=== PATIENT | male | born 1935 | race Caucasian/White ===

== ENCOUNTER 2021-02-17 22:25 | Inpatient (IN) | payer MEDICARE, OTHER ==
[~2021-02-17] VITALS: Ht 177.8 cm; Wt 63.6 kg
[2021-02-17 23:49] LABS: Basophils # (auto) 0 10 ^3/uL (0-0.2); Basophils % (auto) 0.2 % (0.0-2.0); Eosinophils # (auto) 0 10 ^3/uL (0-0.8); Hematocrit 41.5 % (41.0-53.0); Hemoglobin 13.9 g/dL (13.5-17.5); Lymphocytes # (auto) 0.5 10 ^3/uL (0.4-5.4); Lymphocytes % (auto) 8.5 % (10.0-50.0); Mean Corpuscular Hemoglobin 32.8 pg (28.0-32.0); Mean Corpuscular Hgb Conc. 33.6 g/dL (32.0-36.0); Mean Corpuscular Volume 97.6 fL (80.0-100.0); Monocytes # (auto) 0.4 10 ^3/uL (0-1.3); Monocytes % (auto) 8.1 % (0.0-12.0); Neutrophils # (auto) 4.4 10 ^3/uL (1.6-8.6); Neutrophils % (auto) 83.2 % (37.0-80.0); Nucleated Red Blood Cells % 0.1 %; Red Blood Cells 4.25 10^6/uL (4.5-5.90); Red Cell Distribution Width 14.4 % (11.8-14.3); White Blood Cell 5.3 10^3/uL (4.4-10.8)
[2021-02-18 00:05] LABS: BUN/Creatinine Ratio 28.4; Calcium 8.4 mg/dL (8.5-10.1); INR 0.98 (0.9-1.15); Magnesium 3.2 mg/dL (1.6-2.6); Partial Thromboplastin Time 28.2 sec (23.6-33.0); Potassium 4.6 mmol/L (3.5-5.1)
[2021-02-18 00:08] LABS: Bilirubin, Total 0.6 mg/dL (0.2-1.0); Total Protein 7.5 g/dL (6.4-8.2)
[2021-02-18] MEDS ORDERED: DexAMETHasone SOD PHOS 10MG/1ML VIAL INJ IV ONE (01:00)
[2021-02-18] MEDS ORDERED: DOCUSATE SOD 100 MG CAP PO PRN (03:00)
[2021-02-18] MEDS ORDERED: ACETAMINOPHEN 500 MG TAB PO PRN (03:00)
[2021-02-18] MEDS ORDERED: HYDROcodone-ACET 5/325MG TAB PO PRN (03:00)
[2021-02-18] MEDS ORDERED: ACETAMINOPHEN 325 MG TAB PO PRN (03:00)
[2021-02-18] MEDS ORDERED: ONDANSETRON HCL 4 MG/2 ML VIAL IV PRN (03:00)
[2021-02-18] MEDS ORDERED: MORPHINE SULFATE 4 MG/ML SYR/VIAL IV PRN (03:00)
[2021-02-18 03:17] VITALS: BP 128/68
[2021-02-18] MEDS: DOXYCYCLINE 100MG/250ML 250 ML IV SCH ×2 (04:08→22:35)
[2021-02-18] MEDS ORDERED: NITROGLYCERIN 0.4 MG SL TAB SL PRN (05:45)
[2021-02-18] MEDS: SODIUM CHLOR 0.9% PF (SALINE LOCK) 10ML VIAL/SYR IV SCH ×3 (06:14→22:36)
[2021-02-18 09:10] VITALS: BP 128/75
[2021-02-18] MEDS: ASCORBIC ACID 1,000 MG TAB PO SCH (09:57)
[2021-02-18] MEDS: CHOLECALCIFEROL (VITD3) 2,000 UNIT CAP/TAB PO SCH (09:57)
[2021-02-18] MEDS: ZINC SULFATE 220mg CAP or TAB PO SCH (09:57)
[2021-02-18] MEDS: FAMOTIDINE (10MG/ML) 2ML VL IV SCH ×2 (09:58→22:35)
[2021-02-18] MEDS: DexAMETHasone SOD PHOS 10MG/1ML VIAL INJ IV SCH (09:58)
[2021-02-18] MEDS: MULTIPLE VITAMIN TAB PO SCH (09:58)
[2021-02-18] MEDS: BUDESONIDE (INHALATION) 180 MCG IH IN SCH ×2 (10:00→19:36)
[2021-02-18] MEDS: HEPARIN SODIUM (PORCINE) 5000 UNITS/ML 1ML VIAL SC SCH ×2 (10:00→22:37)
[2021-02-18 10:23] LABS: Calcium 8.3 mg/dL (8.5-10.1); Potassium 4.8 mmol/L (3.5-5.1)
[2021-02-18 10:25] LABS: BUN/Creatinine Ratio 29.1
[2021-02-18 12:44] VITALS: BP 128/75
[2021-02-18] MEDS ORDERED: TAMS0.4C36 PO (13:46)
[2021-02-18] MEDS: SODIUM CHLORIDE 0.9% 1,000 ML IV SCH (15:11)
[2021-02-18 16:18] VITALS: BP 115/68
[2021-02-18] MEDS: ALBUTEROL SULF HFA 90MCG INH 200DOSE IN PRN (19:34)
[2021-02-18 22:28] VITALS: BP 106/67
[2021-02-19] MEDS: SODIUM CHLORIDE 0.9% 1,000 ML IV SCH ×2 (04:20→17:40)
[2021-02-19 05:00] VITALS: BP 140/75
[2021-02-19 06:50] LABS: Basophils # (auto) 0 10 ^3/uL (0-0.2); Basophils % (auto) 0.1 % (0.0-2.0); Eosinophils # (auto) 0 10 ^3/uL (0-0.8); Hematocrit 38.9 % (41.0-53.0); Hemoglobin 13.3 g/dL (13.5-17.5); Lymphocytes # (auto) 0.6 10 ^3/uL (0.4-5.4); Mean Corpuscular Hemoglobin 33.5 pg (28.0-32.0); Mean Corpuscular Hgb Conc. 34.3 g/dL (32.0-36.0); Mean Corpuscular Volume 97.5 fL (80.0-100.0); Monocytes # (auto) 0.7 10 ^3/uL (0-1.3); Monocytes % (auto) 7.4 % (0.0-12.0); Neutrophils # (auto) 7.8 10 ^3/uL (1.6-8.6); Neutrophils % (auto) 85.5 % (37.0-80.0); Nucleated Red Blood Cells % 0.1 %; Red Blood Cells 3.99 10^6/uL (4.5-5.90); Red Cell Distribution Width 14.3 % (11.8-14.3); White Blood Cell 9.1 10^3/uL (4.4-10.8)
[2021-02-19] MEDS: SODIUM CHLOR 0.9% PF (SALINE LOCK) 10ML VIAL/SYR IV SCH ×3 (07:03→23:41)
[2021-02-19 07:14] LABS: Potassium 4.5 mmol/L (3.5-5.1)
[2021-02-19] MEDS: BUDESONIDE (INHALATION) 180 MCG IH IN SCH ×2 (07:17→20:13)
[2021-02-19] MEDS: ALBUTEROL SULF HFA 90MCG INH 200DOSE IN PRN ×2 (07:17→20:13)
[2021-02-19 07:26] LABS: Albumin 2.4 g/dL (3.4-5.0); BUN/Creatinine Ratio 32.6; Bilirubin, Total 0.4 mg/dL (0.2-1.0); Calcium 8.2 mg/dL (8.5-10.1); Total Protein 6.6 g/dL (6.4-8.2)
[2021-02-19] MEDS: DOXYCYCLINE 100MG/250ML 250 ML IV SCH ×2 (08:55→23:41)
[2021-02-19] MEDS: ZINC SULFATE 220mg CAP or TAB PO SCH (08:56)
[2021-02-19] MEDS: MULTIPLE VITAMIN TAB PO SCH (08:56)
[2021-02-19] MEDS: DexAMETHasone SOD PHOS 10MG/1ML VIAL INJ IV SCH (08:57)
[2021-02-19] MEDS: CHOLECALCIFEROL (VITD3) 2,000 UNIT CAP/TAB PO SCH (08:57)
[2021-02-19] MEDS: FAMOTIDINE (10MG/ML) 2ML VL IV SCH ×2 (08:57→23:41)
[2021-02-19] MEDS: ASCORBIC ACID 1,000 MG TAB PO SCH (08:58)
[2021-02-19 09:00] VITALS: BP 123/76
[2021-02-19] MEDS: HEPARIN SODIUM (PORCINE) 5000 UNITS/ML 1ML VIAL SC SCH ×2 (09:06→22:00)
[2021-02-19 12:37] VITALS: BP 127/85
[2021-02-19 17:00] VITALS: BP 105/57
[2021-02-19] MEDS: TAMSULOSIN HYDROCHLORIDE 0.4 MG CAP PO SCH (18:06)
[2021-02-19 22:02] VITALS: BP 118/57
[2021-02-20 05:00] VITALS: BP 146/88
[2021-02-20] MEDS: SODIUM CHLOR 0.9% PF (SALINE LOCK) 10ML VIAL/SYR IV SCH ×3 (06:05→22:00)
[2021-02-20] MEDS: SODIUM CHLORIDE 0.9% 1,000 ML IV SCH ×2 (06:37→20:20)
[2021-02-20] MEDS: BUDESONIDE (INHALATION) 180 MCG IH IN SCH ×2 (07:33→21:14)
[2021-02-20] MEDS: ALBUTEROL SULF HFA 90MCG INH 200DOSE IN PRN (07:33)
[2021-02-20 09:00] VITALS: BP 113/67
[2021-02-20] MEDS: DOXYCYCLINE 100MG/250ML 250 ML IV SCH ×2 (10:11→21:56)
[2021-02-20] MEDS: DexAMETHasone SOD PHOS 10MG/1ML VIAL INJ IV SCH (10:57)
[2021-02-20] MEDS: FAMOTIDINE (10MG/ML) 2ML VL IV SCH ×2 (10:57→21:56)
[2021-02-20] MEDS: CHOLECALCIFEROL (VITD3) 2,000 UNIT CAP/TAB PO SCH (10:58)
[2021-02-20] MEDS: ZINC SULFATE 220mg CAP or TAB PO SCH (10:58)
[2021-02-20] MEDS: ASCORBIC ACID 1,000 MG TAB PO SCH (10:58)
[2021-02-20] MEDS: MULTIPLE VITAMIN TAB PO SCH (10:58)
[2021-02-20] MEDS: HEPARIN SODIUM (PORCINE) 5000 UNITS/ML 1ML VIAL SC SCH ×2 (11:15→21:58)
[2021-02-20 13:00] VITALS: BP 128/80
[2021-02-20 17:00] VITALS: BP 138/78
[2021-02-20] MEDS: TAMSULOSIN HYDROCHLORIDE 0.4 MG CAP PO SCH (18:25)
[2021-02-20 22:00] VITALS: BP 143/70
[2021-02-20 22:57] VITALS: BP 138/78
[2021-02-21 04:32] VITALS: BP 128/80
[2021-02-21] MEDS: SODIUM CHLOR 0.9% PF (SALINE LOCK) 10ML VIAL/SYR IV SCH ×3 (05:40→22:00)
[2021-02-21] MEDS: BUDESONIDE (INHALATION) 180 MCG IH IN SCH ×2 (06:06→19:30)
[2021-02-21] MEDS: ALBUTEROL SULF HFA 90MCG INH 200DOSE IN PRN ×2 (06:06→19:30)
[2021-02-21 07:13] LABS: Basophils # (auto) 0 10 ^3/uL (0-0.2); Eosinophils # (auto) 0 10 ^3/uL (0-0.8); Hemoglobin 12.5 g/dL (13.5-17.5); Lymphocytes # (auto) 0.6 10 ^3/uL (0.4-5.4); Lymphocytes % (auto) 5.8 % (10.0-50.0); Mean Corpuscular Hemoglobin 33.4 pg (28.0-32.0); Mean Corpuscular Volume 101.1 fL (80.0-100.0); Monocytes # (auto) 0.6 10 ^3/uL (0-1.3); Monocytes % (auto) 5.5 % (0.0-12.0); Neutrophils # (auto) 9.5 10 ^3/uL (1.6-8.6); Neutrophils % (auto) 88.7 % (37.0-80.0); Nucleated Red Blood Cells % 0.1 %; Red Blood Cells 3.76 10^6/uL (4.5-5.90); Red Cell Distribution Width 13.9 % (11.8-14.3); White Blood Cell 10.7 10^3/uL (4.4-10.8)
[2021-02-21 07:22] LABS: Calcium 7.9 mg/dL (8.5-10.1); Potassium 4.3 mmol/L (3.5-5.1)
[2021-02-21 07:33] LABS: Albumin 2.1 g/dL (3.4-5.0); BUN/Creatinine Ratio 37.1; Bilirubin, Total 0.5 mg/dL (0.2-1.0); CRP High Sensitivity 2.23 mg/dL (< 0.3)
[2021-02-21] MEDS: SODIUM CHLORIDE 0.9% 1,000 ML IV SCH ×3 (08:00→23:00)
[2021-02-21 10:17] VITALS: BP 130/81
[2021-02-21] MEDS: DexAMETHasone SOD PHOS 10MG/1ML VIAL INJ IV SCH (10:55)
[2021-02-21] MEDS: HEPARIN SODIUM (PORCINE) 5000 UNITS/ML 1ML VIAL SC SCH ×2 (10:55→22:18)
[2021-02-21] MEDS: ZINC SULFATE 220mg CAP or TAB PO SCH (10:56)
[2021-02-21] MEDS: FAMOTIDINE (10MG/ML) 2ML VL IV SCH (10:56)
[2021-02-21] MEDS: ASCORBIC ACID 1,000 MG TAB PO SCH (10:56)
[2021-02-21] MEDS: DOXYCYCLINE 100MG/250ML 250 ML IV SCH ×2 (10:56→22:18)
[2021-02-21] MEDS: CHOLECALCIFEROL (VITD3) 2,000 UNIT CAP/TAB PO SCH (10:57)
[2021-02-21] MEDS: MULTIPLE VITAMIN TAB PO SCH (10:57)
[2021-02-21 13:00] VITALS: BP 116/96
[2021-02-21] MEDS: QUEtiapine FUMARATE 25 MG TAB PO SCH ×2 (13:13→22:18)
[2021-02-21] MEDS: TAMSULOSIN HYDROCHLORIDE 0.4 MG CAP PO SCH (18:00)
[2021-02-21 22:00] VITALS: BP 135/96
[2021-02-22] MEDS: HALOPERIDOL LACTATE 5 MG/ML INJ VIAL IM PRN ×2 (02:15→15:26)
[2021-02-22 05:00] VITALS: BP 149/98
[2021-02-22] MEDS: SODIUM CHLOR 0.9% PF (SALINE LOCK) 10ML VIAL/SYR IV SCH ×3 (06:00→21:46)
[2021-02-22 06:18] LABS: Hematocrit 39.4 % (41.0-53.0); Hemoglobin 13.4 g/dL (13.5-17.5); Mean Corpuscular Hemoglobin 32.7 pg (28.0-32.0); Mean Corpuscular Hgb Conc. 34.1 g/dL (32.0-36.0); Mean Corpuscular Volume 95.8 fL (80.0-100.0); Red Blood Cells 4.11 10^6/uL (4.5-5.90); White Blood Cell 18.4 10^3/uL (4.4-10.8)
[2021-02-22 06:30] LABS: Albumin 2.5 g/dL (3.4-5.0); Calcium 8.4 mg/dL (8.5-10.1); Potassium 4.2 mmol/L (3.5-5.1)
[2021-02-22 06:31] LABS: Basophils % (manual) 0 (0.0-2.0); Blast Cells 0; Eosinophils % (manual) 0 (0-7); Metamyelocytes % 0; Myelocytes % 0; Promyelocytes % 0; Reactive Lymphocytes 0
[2021-02-22 06:37] LABS: BUN/Creatinine Ratio 30.2; Bilirubin, Total 0.6 mg/dL (0.2-1.0); Total Protein 6.6 g/dL (6.4-8.2)
[2021-02-22 06:45] LABS: CRP High Sensitivity 1.54 mg/dL (< 0.3)
[2021-02-22] MEDS: ALBUTEROL SULF HFA 90MCG INH 200DOSE IN PRN (06:56)
[2021-02-22] MEDS: BUDESONIDE (INHALATION) 180 MCG IH IN SCH ×2 (06:56→21:46)
[2021-02-22 08:00] VITALS: BP 156/95
[2021-02-22 09:18] LABS: Band Neutrophils % (manual) 4; Lymphocytes % (manual) 8 (10.0-50.0); Monocytes % (manual) 6 (0-12)
[2021-02-22] MEDS: MULTIPLE VITAMIN TAB PO SCH (10:00)
[2021-02-22] MEDS: CHOLECALCIFEROL (VITD3) 2,000 UNIT CAP/TAB PO SCH (10:00)
[2021-02-22] MEDS: ASCORBIC ACID 1,000 MG TAB PO SCH (10:00)
[2021-02-22] MEDS: QUEtiapine FUMARATE 25 MG TAB PO SCH ×2 (10:00→21:46)
[2021-02-22] MEDS: ZINC SULFATE 220mg CAP or TAB PO SCH (10:00)
[2021-02-22 12:00] VITALS: BP 126/66
[2021-02-22] MEDS: DexAMETHasone SOD PHOS 10MG/1ML VIAL INJ IV SCH (12:28)
[2021-02-22] MEDS: FAMOTIDINE (10MG/ML) 2ML VL IV SCH (12:29)
[2021-02-22] MEDS: DOXYCYCLINE 100MG/250ML 250 ML IV SCH ×2 (12:29→21:10)
[2021-02-22] MEDS: HEPARIN SODIUM (PORCINE) 5000 UNITS/ML 1ML VIAL SC SCH ×2 (12:30→22:00)
[2021-02-22] MEDS: SODIUM CHLORIDE 0.9% 1,000 ML IV SCH (12:31)
[2021-02-22 16:00] VITALS: BP 135/62
[2021-02-22] MEDS: TAMSULOSIN HYDROCHLORIDE 0.4 MG CAP PO SCH (18:00)
[2021-02-22 22:00] VITALS: BP 140/88
[2021-02-23] MEDS: SODIUM CHLORIDE 0.9% 1,000 ML IV SCH ×2 (01:40→15:03)
[2021-02-23] MEDS: HALOPERIDOL LACTATE 5 MG/ML INJ VIAL IM PRN (03:18)
[2021-02-23 05:00] VITALS: BP 148/96
[2021-02-23] MEDS: BUDESONIDE (INHALATION) 180 MCG IH IN SCH ×2 (07:35→18:54)
[2021-02-23 07:55] LABS: Hematocrit 38.9 % (41.0-53.0); Hemoglobin 13.1 g/dL (13.5-17.5); Mean Corpuscular Hemoglobin 32.7 pg (28.0-32.0); Mean Corpuscular Hgb Conc. 33.7 g/dL (32.0-36.0); Red Cell Distribution Width 14.6 % (11.8-14.3); White Blood Cell 14.4 10^3/uL (4.4-10.8)
[2021-02-23 08:00] VITALS: BP 153/86
[2021-02-23 08:06] LABS: Band Neutrophils % (manual) 0; Basophils % (manual) 0 (0.0-2.0); Blast Cells 0; Eosinophils % (manual) 0 (0-7); Metamyelocytes % 0; Myelocytes % 0; Promyelocytes % 0; Reactive Lymphocytes 0
[2021-02-23] MEDS: ZINC SULFATE 220mg CAP or TAB PO SCH (10:00)
[2021-02-23] MEDS: QUEtiapine FUMARATE 25 MG TAB PO SCH ×2 (10:00→21:39)
[2021-02-23] MEDS: MULTIPLE VITAMIN TAB PO SCH (10:00)
[2021-02-23] MEDS: CHOLECALCIFEROL (VITD3) 2,000 UNIT CAP/TAB PO SCH (10:00)
[2021-02-23] MEDS: ASCORBIC ACID 1,000 MG TAB PO SCH (10:00)
[2021-02-23] MEDS: DexAMETHasone SOD PHOS 10MG/1ML VIAL INJ IV SCH (10:05)
[2021-02-23] MEDS: FAMOTIDINE (10MG/ML) 2ML VL IV SCH (10:05)
[2021-02-23] MEDS: SODIUM CHLOR 0.9% PF (SALINE LOCK) 10ML VIAL/SYR IV SCH ×3 (10:05→21:39)
[2021-02-23] MEDS: HEPARIN SODIUM (PORCINE) 5000 UNITS/ML 1ML VIAL SC SCH ×2 (10:07→22:00)
[2021-02-23 11:56] LABS: Lymphocytes % (manual) 4 (10.0-50.0); Monocytes % (manual) 5 (0-12)
[2021-02-23 12:00] VITALS: BP 159/111
[2021-02-23] MEDS ORDERED: hydrALAZINE HCL 20 MG/ML VL IV PRN (12:45)
[2021-02-23] MEDS ORDERED: HALOPERIDOL LACTATE 5 MG/ML INJ VIAL IM ONE (14:45)
[2021-02-23 17:00] VITALS: BP 138/87
[2021-02-23] MEDS: TAMSULOSIN HYDROCHLORIDE 0.4 MG CAP PO SCH (17:23)
[2021-02-23] MEDS: ALBUTEROL SULF HFA 90MCG INH 200DOSE IN PRN (18:54)
[2021-02-23] MEDS: MIRTAZAPINE 30 MG TAB PO SCH (22:00)
[2021-02-23 22:38] LABS: Folate (Folic Acid) 9.71 ng/mL (5.38-24)
[2021-02-23 22:48] VITALS: BP 159/103
[2021-02-23 23:01] VITALS: BP 159/103
[2021-02-24] MEDS: SODIUM CHLORIDE 0.9% 1,000 ML IV SCH ×2 (04:20→17:40)
[2021-02-24] MEDS: HALOPERIDOL LACTATE 5 MG/ML INJ VIAL IM PRN (04:51)
[2021-02-24 05:20] VITALS: BP 144/80
[2021-02-24] MEDS: SODIUM CHLOR 0.9% PF (SALINE LOCK) 10ML VIAL/SYR IV SCH ×3 (06:00→22:00)
[2021-02-24] MEDS: BUDESONIDE (INHALATION) 180 MCG IH IN SCH (07:11)
[2021-02-24] MEDS: ALBUTEROL SULF HFA 90MCG INH 200DOSE IN PRN (07:11)
[2021-02-24 09:00] VITALS: BP 124/74
[2021-02-24] MEDS: CHOLECALCIFEROL (VITD3) 2,000 UNIT CAP/TAB PO SCH (10:00)
[2021-02-24] MEDS: QUEtiapine FUMARATE 25 MG TAB PO SCH ×2 (10:00→22:00)
[2021-02-24] MEDS: ASCORBIC ACID 1,000 MG TAB PO SCH (10:00)
[2021-02-24] MEDS: MULTIPLE VITAMIN TAB PO SCH (10:00)
[2021-02-24] MEDS: ZINC SULFATE 220mg CAP or TAB PO SCH (10:00)
[2021-02-24] MEDS: DexAMETHasone SOD PHOS 10MG/1ML VIAL INJ IV SCH (10:31)
[2021-02-24] MEDS: HEPARIN SODIUM (PORCINE) 5000 UNITS/ML 1ML VIAL SC SCH ×2 (10:33→23:04)
[2021-02-24 13:00] VITALS: BP 125/73
[2021-02-24 16:39] VITALS: BP 124/86
[2021-02-24] MEDS: TAMSULOSIN HYDROCHLORIDE 0.4 MG CAP PO SCH (18:00)
[2021-02-24] MEDS: MIRTAZAPINE 30 MG TAB PO SCH (22:00)
[2021-02-24 22:12] VITALS: BP 107/54
[2021-02-25] MEDS: HALOPERIDOL LACTATE 5 MG/ML INJ VIAL IM PRN (01:52)
[2021-02-25 06:00] VITALS: BP 104/70
[2021-02-25] MEDS: SODIUM CHLOR 0.9% PF (SALINE LOCK) 10ML VIAL/SYR IV SCH ×3 (07:24→20:46)
[2021-02-25] MEDS: SODIUM CHLORIDE 0.9% 1,000 ML IV SCH ×2 (07:24→20:45)
[2021-02-25 08:45] VITALS: BP 118/81
[2021-02-25] MEDS: QUEtiapine FUMARATE 25 MG TAB PO SCH ×2 (10:00→22:00)
[2021-02-25] MEDS: MULTIPLE VITAMIN TAB PO SCH (10:00)
[2021-02-25] MEDS: CHOLECALCIFEROL (VITD3) 2,000 UNIT CAP/TAB PO SCH (10:00)
[2021-02-25] MEDS: ZINC SULFATE 220mg CAP or TAB PO SCH (10:00)
[2021-02-25] MEDS: DexAMETHasone SOD PHOS 10MG/1ML VIAL INJ IV SCH (10:00)
[2021-02-25] MEDS: ASCORBIC ACID 1,000 MG TAB PO SCH (10:00)
[2021-02-25] MEDS: HEPARIN SODIUM (PORCINE) 5000 UNITS/ML 1ML VIAL SC SCH ×2 (10:20→22:15)
[2021-02-25 13:00] VITALS: BP 130/89
[2021-02-25 16:49] VITALS: BP 110/72
[2021-02-25] MEDS: TAMSULOSIN HYDROCHLORIDE 0.4 MG CAP PO SCH (17:35)
[2021-02-25 22:00] VITALS: BP 129/95
[2021-02-25] MEDS: MIRTAZAPINE 30 MG TAB PO SCH (22:00)
[2021-02-26 05:00] VITALS: BP 117/73
[2021-02-26] MEDS: SODIUM CHLOR 0.9% PF (SALINE LOCK) 10ML VIAL/SYR IV SCH ×3 (06:33→21:33)
[2021-02-26] MEDS: SODIUM CHLORIDE 0.9% 1,000 ML IV SCH (06:35)
[2021-02-26 09:18] VITALS: BP 114/71
[2021-02-26] MEDS: DexAMETHasone SOD PHOS 10MG/1ML VIAL INJ IV SCH (09:36)
[2021-02-26] MEDS: ZINC SULFATE 220mg CAP or TAB PO SCH (09:36)
[2021-02-26] MEDS: ASCORBIC ACID 1,000 MG TAB PO SCH (09:36)
[2021-02-26] MEDS: MULTIPLE VITAMIN TAB PO SCH (09:36)
[2021-02-26] MEDS: QUEtiapine FUMARATE 25 MG TAB PO SCH ×2 (09:36→21:32)
[2021-02-26] MEDS: CHOLECALCIFEROL (VITD3) 2,000 UNIT CAP/TAB PO SCH (09:37)
[2021-02-26] MEDS: HEPARIN SODIUM (PORCINE) 5000 UNITS/ML 1ML VIAL SC SCH (09:38)
[2021-02-26 11:43] LABS: Basophils # (auto) 0 10 ^3/uL (0-0.2); Eosinophils # (auto) 0 10 ^3/uL (0-0.8); Hematocrit 41.9 % (41.0-53.0); Hemoglobin 13.4 g/dL (13.5-17.5); Lymphocytes # (auto) 0.8 10 ^3/uL (0.4-5.4); Lymphocytes % (auto) 4.7 % (10.0-50.0); Mean Corpuscular Hemoglobin 32.5 pg (28.0-32.0); Mean Corpuscular Hgb Conc. 31.9 g/dL (32.0-36.0); Mean Corpuscular Volume 102.1 fL (80.0-100.0); Monocytes # (auto) 0.7 10 ^3/uL (0-1.3); Monocytes % (auto) 3.8 % (0.0-12.0); Neutrophils # (auto) 15.5 10 ^3/uL (1.6-8.6); Neutrophils % (auto) 91.5 % (37.0-80.0); Nucleated Red Blood Cells % 0.2 %; Red Blood Cells 4.11 10^6/uL (4.5-5.90); Red Cell Distribution Width 15.4 % (11.8-14.3)
[2021-02-26 11:49] LABS: BUN/Creatinine Ratio 42.5; Calcium 7.8 mg/dL (8.5-10.1); Potassium 4.6 mmol/L (3.5-5.1)
[2021-02-26 13:00] VITALS: BP 125/84
[2021-02-26] MEDS ORDERED: METOPROLOL TARTRATE 1MG/1ML-5ML VIAL IV PRN (13:30)
[2021-02-26] MEDS ORDERED: DEXTROSE (50%) 50ML SYRG IV SCH (15:00)
[2021-02-26 17:27] VITALS: BP 123/82
[2021-02-26] MEDS ORDERED: InsuLIN REG 1unit/0.01ml Soln (100units/ml) SC SCH (18:00)
[2021-02-26] MEDS ORDERED: ACCU-CHEK COMFORT CURVE STRIP VI SCH (18:00)
[2021-02-26] MEDS: TAMSULOSIN HYDROCHLORIDE 0.4 MG CAP PO SCH (18:00)
[2021-02-26] MEDS ORDERED: ALBUMIN 5% 250 ML IV ONE ×2 (20:00→20:30)
[2021-02-26] MEDS ORDERED: AMINO ACID INFUSION IN D10W 1,000 ML IV NR (20:00)
[2021-02-26] MEDS ORDERED: SODIUM CHLORIDE 0.9% 500 ML IV ONE (20:30)
[2021-02-26] MEDS ORDERED: SODIUM CHLORIDE 0.9% 1,000 ML IV SCH (20:30)
[2021-02-26] MEDS ORDERED: NOREPINEPHRINE 8 MG/250ML KIT 250 ML IV SCH (21:15)
[2021-02-26] MEDS: MIRTAZAPINE 30 MG TAB PO SCH (21:32)
[2021-02-26 22:55] LABS: Lactic Acid w/Reflex 2.8 mmol/L (0.4-2.0)
[2021-02-27] VITALS (11 sets, daily range): BP systolic 54–123; BP diastolic 31–83
[2021-02-27] MEDS ORDERED: DEXTROSE (50%) 50ML SYRG IV SCH
[2021-02-27] MEDS ORDERED: ACCU-CHEK COMFORT CURVE STRIP VI SCH
[2021-02-27] MEDS ORDERED: InsuLIN REG 1unit/0.01ml Soln (100units/ml) SC SCH
[2021-02-27] MEDS: HEPARIN SODIUM (PORCINE) 5000 UNITS/ML 1ML VIAL SC SCH (01:19)
[2021-02-27] MEDS ORDERED: ETOMIDATE (2MG/ML) 20ML VIAL IV ONE (03:43)
[2021-02-27] MEDS ORDERED: SUCCINYLCHOLINE CHLORIDE 20 MG/ML 10ML VIAL IV ONE (03:44)
[2021-02-27] MEDS ORDERED: MIDAZOLAM DRIP 50 mg/50mL 50 ML IV ONE (04:03)
[2021-02-27] MEDS ORDERED: PHENYLEPHRINE IV 250 ML IV ONE (04:25)
== END 2021-02-27 08:18 | DRG 871 ==
LOC: ER 22:25 → EDBD 22:25 → TELE 02-18 05:36 → INTOOBSV 02-18 05:36 → TELE 02-18 07:37 → TELE-EAST 02-18 09:06 → OBSVTOIN 02-18 17:31 → TELE-E-ADS 02-19 07:40 → ICU WEST 02-26 22:50
PROVIDERS: ADMIT Nurse Practitioner Family; ATTEND Internal Medicine
PROC: 5A12012 Performance of Cardiac Output, Single, Manual (ICD-10-PCS; principal; 2021-02-18)
PROC: 4B02XSZ Measurement of Cardiac Pacemaker, External Approach (ICD-10-PCS; 2021-02-24)
DX: A41.89 Other specified sepsis (principal); U07.1 COVID-19; J12.82 Pneumonia due to coronavirus disease 2019; J96.01 Acute respiratory failure with hypoxia; G93.41 Metabolic encephalopathy; N17.9 Acute kidney failure, unspecified; E83.42 Hypomagnesemia; E88.09 Other disorders of plasma-protein metabolism, not elsewhere classified; I46.9 Cardiac arrest, cause unspecified; R73.9 Hyperglycemia, unspecified; M10.9 Gout, unspecified; R42 Dizziness and giddiness; I10 Essential (primary) hypertension; N40.0 Benign prostatic hyperplasia without lower urinary tract symptoms; F02.80 Dementia in other diseases classified elsewhere, unspecified severity, without behavioral disturbance, psychotic disturbance, mood disturbance, and anxiety; G30.9 Alzheimer's disease, unspecified; Z88.5 Allergy status to narcotic agent; Z95.0 Presence of cardiac pacemaker
CPT/HCPCS: 36415; 36600; 70450; 71045; 80048; 80053; 82607; 82728; 82746; 82805; 82962; 83036; 83605; 83615; 83735; 83880; 84100; 84443; 84484; 85007; 85025; 85027; 85379; 85610; 85730; 86141; 87070; 87077; 87081; 87186; 87205; 87426; 93005; 93306; 93970; 94002; 94640; 96365; 96366; G0378; J0330; J1100; J2250; J3490